=== PATIENT | female | born 1940 | race Caucasian/White ===

== ENCOUNTER → 2021-02-18 | Day surgery (SDC) | payer OTHER ==
[~2021-02-18] VITALS: Ht 160 cm; Wt 78.9 kg
[~2021-02-18] MED LIST: ACTOS15 MG PO; ALBUTEROL0.5 ML/AMP NEB; ALENDRONATE SOD70 MG PO; ANASTROZOLE1 MG PO; ASPIRIN81 MG PO; ATENOLOL25 MG PO; AZO BLADDER CO1 EACH PO; BONE PO; CETIRIZINE HCL5 MG PO; ENERGY PO; GLIPIZIDE ER10 MG PO; HAIR SKIN NAIL1 EACH PO; METFORMIN HCL1000 MG PO; NORCO 7.5-3251 EACH PO; OS-CAL500 MG PO; PROLIA60 MG/1 ML IM; RALOXIFENE HCL60 MG PO; SIMVASTATIN40 MG PO; VENTOLIN HFA IN18 GM INH; VITAMIN D325 MC2 PO; ZESTRIL5 MG PO
== END | disposition home or self-care (01) ==
LOC: FAS 09:03
DX: K29.50 Unspecified chronic gastritis without bleeding (principal); K57.30 Diverticulosis of large intestine without perforation or abscess without bleeding; D64.9 Anemia, unspecified; R19.5 Other fecal abnormalities; I10 Essential (primary) hypertension; E78.5 Hyperlipidemia, unspecified; E11.42 Type 2 diabetes mellitus with diabetic polyneuropathy; E55.9 Vitamin D deficiency, unspecified; G47.00 Insomnia, unspecified; M19.90 Unspecified osteoarthritis, unspecified site; M81.0 Age-related osteoporosis without current pathological fracture; E66.9 Obesity, unspecified; Z68.30 Body mass index [BMI] 30.0-30.9, adult; Z79.82 Long term (current) use of aspirin; Z79.84 Long term (current) use of oral hypoglycemic drugs; Z79.899 Other long term (current) drug therapy; Z88.0 Allergy status to penicillin; Z88.8 Allergy status to other drugs, medicaments and biological substances; Z87.440 Personal history of urinary (tract) infections; Z87.01 Personal history of pneumonia (recurrent); Z85.3 Personal history of malignant neoplasm of breast; Z90.710 Acquired absence of both cervix and uterus; Z90.12 Acquired absence of left breast and nipple; Z98.51 Tubal ligation status; Z87.891 Personal history of nicotine dependence
CPT/HCPCS: 82962; 88305; J1610; J2250; J2704; J7120